=== PATIENT | female | born 1965 | race Hispanic/Latino ===

== ENCOUNTER 2025-01-19 06:50 | Day surgery (SDC) | payer OTHER ==
[~2025-01-19] VITALS: Ht 154.9 cm; Wt 72.6 kg
[2025-01-19] VITALS (8 sets, daily range): BP systolic 109–148; BP diastolic 65–87; PULSE 57–62; RESP 12–16; TEMP 97.2–98.5
[2025-01-19] MEDS ORDERED: GABA300C PO (07:18)
[2025-01-19] MEDS ORDERED: ESCI5TAB16 PO (07:18)
[2025-01-19] MEDS ORDERED: ATOR10 PO (07:18)
[2025-01-19] MEDS ORDERED: MULT-1203 PO (07:18)
[2025-01-19] MEDS ORDERED: ERGO500093 PO (07:18)
[2025-01-19] MEDS: 0.9%NACL 1000ML 1,000 ML IV ONE (07:34)
[2025-01-19] MEDS ORDERED: MIDAZOLAM HCL 1 MG/ML 2ML VIAL ONE (07:41)
[2025-01-19] MEDS ORDERED: LIDOCAINE PF 100MG/5ML (2%) SYRINGE 5ML ONE (07:42)
== END 2025-01-19 09:23 | disposition home or self-care (01) ==
LOC: DAH 06:50
PROVIDERS: ATTEND Surgery
DX: K30 Functional dyspepsia (principal); K29.50 Unspecified chronic gastritis without bleeding; K44.9 Diaphragmatic hernia without obstruction or gangrene; K21.9 Gastro-esophageal reflux disease without esophagitis; I10 Essential (primary) hypertension; F41.9 Anxiety disorder, unspecified; F32.A Depression, unspecified; J45.909 Unspecified asthma, uncomplicated; E11.9 Type 2 diabetes mellitus without complications; M81.0 Age-related osteoporosis without current pathological fracture; E66.01 Morbid (severe) obesity due to excess calories; E56.9 Vitamin deficiency, unspecified; K59.04 Chronic idiopathic constipation; M19.90 Unspecified osteoarthritis, unspecified site; E78.00 Pure hypercholesterolemia, unspecified; Z90.49 Acquired absence of other specified parts of digestive tract; Z95.5 Presence of coronary angioplasty implant and graft; Z90.710 Acquired absence of both cervix and uterus; Z90.89 Acquired absence of other organs; Z98.84 Bariatric surgery status; Z68.33 Body mass index [BMI] 33.0-33.9, adult; Z79.899 Other long term (current) drug therapy
CPT/HCPCS: 43239; 82948 ×2; J3010; J7030; J2003; J2250; J2704; A4620; A4215 ×2; J3490